=== PATIENT | female | born 1960 | race Caucasian/White ===

== ENCOUNTER → 2019-10-03 | Outpatient (CLI) | payer OTHER | END | disposition home or self-care (01) | LOC: RAD 14:44 | PROVIDERS: ATTEND Neurological Surgery | DX: Z01.818 Encounter for other preprocedural examination (principal); M47.817 Spondylosis without myelopathy or radiculopathy, lumbosacral region | CPT/HCPCS: 71046; 72110; 93005 ==

== ENCOUNTER 2020-09-24 12:09 | Outpatient (CLI) | payer OTHER ==
[2020-09-24] MEDS ORDERED: INDA2.5T PO (12:36)
[2020-09-24] MEDS ORDERED: LEVO112T2 PO (12:36)
[2020-09-24] MEDS ORDERED: POTA10TA12 PO (12:36)
[2020-09-24 13:20] LABS: MICROSCOPIC NOT IND
[2020-09-24 13:23] LABS: BASOPHILS % (AUTO) 1 % (0-1); EOSINOPHILS % (AUTO) 1 % (1-7); LYMPHOCYTES % (AUTO) 45 % (22-44); MEAN CORPUSCULAR HEMOGLOBIN 31.7 pg (27.0-34.8); MEAN CORPUSCULAR HGB CONC 33.6 g/dL (32.4-35.8); MEAN PLATELET VOLUME 7.9 fL (7.4-10.4); MONOCYTES % (AUTO) 6 % (2-9); NEUTROPHILS % (AUTO) 48 % (42-75); PLATELET COUNT 318 x10^3/uL (130-400); RED BLOOD COUNT 4.61 x10^6/uL (3.82-5.3)
[2020-09-24 13:25] LABS: MD NO
[2020-09-24 13:32] LABS: ALBUMIN 3.8 g/dL (3.4-5.0); ANION GAP 8 mmol/L (5-15); CALCIUM 9.5 mg/dL (8.5-10.1); CHLORIDE 105 mmol/L (98-107)
[2020-09-24 13:35] LABS: ALANINE AMINOTRANSFERASE 21 U/L (12-78); ALKALINE PHOSPHATASE 50 U/L (45-117); BILIRUBIN,TOTAL 0.4 mg/dL (0.2-1.0); CREATININE 0.77 mg/dL (0.55-1.02); TOTAL PROTEIN 7.1 g/dL (6.4-8.2)
== END 2020-09-24 23:59 | disposition home or self-care (01) ==
LOC: STAR 12:09
PROVIDERS: ATTEND Obstetrics & Gynecology
DX: Z01.812 Encounter for preprocedural laboratory examination (principal); Z20.822 Contact with and (suspected) exposure to COVID-19; N81.10 Cystocele, unspecified; N81.6 Rectocele
CPT/HCPCS: 80053; 81003; 85025; 87635

== ENCOUNTER 2020-09-30 07:52 | Day surgery (SDC) | payer OTHER ==
[~2020-09-30] VITALS: Ht 152.4 cm; Wt 57.0 kg
[~2020-09-30 07:52] MED LIST: BUPIVACAINE/PF 0.5% ONE; EPINEPHRINE 1 MG/ML, 1ML ONE; ESTROGENS CONJUGATED VAG CRM 0.625MG/1G, 30GM ONE; INDA2.5T PO; LEVO112T2 PO; POTA10TA12 PO
[2020-09-30 08:21] VITALS: BP 129/90
[2020-09-30] MEDS ORDERED: TYLENOL PO (08:25)
[2020-09-30] MEDS ORDERED: GABAPENTIN 300 MG CAPSULE PO ONE (08:30)
[2020-09-30] MEDS ORDERED: CHLORHEXIDINE 15 ML UDC MM ONE (08:30)
[2020-09-30] MEDS ORDERED: LACTATED RINGERS 1,000 ML IV SCH (08:30)
[2020-09-30] MEDS ORDERED: CHLORHEXIDINE 15 ML UDC ONE (08:34)
[2020-09-30] MEDS ORDERED: FENTANYL PF 250 MCG/5ML ONE (09:06)
[2020-09-30] MEDS ORDERED: MIDAZOLAM 1 MG/ML, 2ML ONE (09:06)
[2020-09-30] MEDS ORDERED: SCOPOLAMINE 1MG PATCH TD ONE (09:39)
[2020-09-30] MEDS ORDERED: ROCURONIUM 10 MG/ML,10ML ONE (09:41)
[2020-09-30] MEDS ORDERED: DEXAMETHASONE 4 MG/ML, 1ML ONE (09:41)
[2020-09-30] MEDS ORDERED: KETOROLAC 30 MG/1 ML ONE (09:41)
[2020-09-30] MEDS ORDERED: ONDANSETRON 2MG/ML, 2ML ONE (09:41)
[2020-09-30] MEDS ORDERED: NEOSTIGMINE 1 MG/ML, 10ML ONE (09:41)
[2020-09-30] MEDS ORDERED: SUCCINYLCHOLINE 20 MG/ML, 10ML ONE (09:41)
[2020-09-30] MEDS ORDERED: GLYCOPYRROLATE 0.2MG/1ML, 5ML ONE (09:41)
[2020-09-30] MEDS ORDERED: CEFAZOLIN 1,000 MG ONE (09:41)
[2020-09-30] MEDS ORDERED: BUPIVACAINE/PF-EPI 0.5% 1:200K INFIL ONE (09:55)
[2020-09-30] MEDS ORDERED: PROPOFOL 50 ML ONE (09:58)
[2020-09-30] MEDS ORDERED: HYDROmorphone 1 MG/ML, 1ML INJ IVPush PRN (10:30)
[2020-09-30] MEDS ORDERED: OXYcodone 5 MG/5 ML ORAL.SOL UDC PO PRN (10:30)
[2020-09-30] MEDS ORDERED: PROMETHAZINE 25 MG/ML, 1ML IVPush PRN (10:30)
[2020-09-30] MEDS ORDERED: LORazepam 2 MG/ML, 1ML IVPush PRN (10:30)
[2020-09-30] MEDS ORDERED: ONDANSETRON 2MG/ML, 2ML IVPush PRN (10:30)
[2020-09-30] MEDS ORDERED: FENTANYL PF 100 MCG/2ML IV PRN (10:30)
[2020-09-30] MEDS ORDERED: METHOCARBAMOL 1,000 MG in DEXTROSE 5% 100 ML IV PRN (10:30)
[2020-09-30] MEDS ORDERED: ESTROGENS CONJUGATED VAG CRM 0.625MG/1G, 30GM VG ONE (10:50)
== END 2020-09-30 16:35 | disposition home or self-care (01) ==
LOC: OUT 07:52
PROVIDERS: ATTEND Obstetrics & Gynecology
DX: N81.10 Cystocele, unspecified (principal); N81.6 Rectocele; E03.9 Hypothyroidism, unspecified; F41.9 Anxiety disorder, unspecified; D68.62 Lupus anticoagulant syndrome; Z88.0 Allergy status to penicillin; Z88.1 Allergy status to other antibiotic agents; Z88.8 Allergy status to other drugs, medicaments and biological substances; Z79.01 Long term (current) use of anticoagulants; Z90.49 Acquired absence of other specified parts of digestive tract; Z98.51 Tubal ligation status; Z98.890 Other specified postprocedural states; Z79.899 Other long term (current) drug therapy; Z90.710 Acquired absence of both cervix and uterus; Z82.49 Family history of ischemic heart disease and other diseases of the circulatory system; Z83.3 Family history of diabetes mellitus
CPT/HCPCS: 57260; J0171; J0330; J0690; J1100; J1885; J2250; J2405; J2704; J2710; J3010; J7120